=== PATIENT | female | born 1930 | race Caucasian/White ===

== ENCOUNTER 2017-04-15 21:19 | Emergency (ER) | payer MEDICARE, BC ==
[2017-04-15] MEDS ORDERED: DIPHENHYDRAMINE 50 MG/ML VIAL ONE (22:00)
[2017-04-15] MEDS ORDERED: METOCLOPRAMIDE HCL 10 MG/2 ML VIAL ONE (22:00)
[2017-04-15] MEDS ORDERED: hydrALAZINE HCL 20 MG/ML VIAL ONE (22:20)
[2017-04-15] MEDS ORDERED: KETOROLAC TROMETHAMINE 30 MG/ML VIAL ONE (22:20)
[2017-04-15] MEDS ORDERED: DIHYDROERGOTAMINE MESYLATE 1 MG/ML AMP ONE (23:36)
[2017-04-15] MEDS ORDERED: ONDANSETRON HCL 4 MG/2 ML VIAL ONE (23:48)
[2017-04-16] MEDS ORDERED: ONDANSETRON ODT PREPAC 4 MG TAB.RAPDIS PO ONE (00:36)
--- NOTE | 2017-04-16 01:23 | ER NURSING DOCUMENTATION ---
Nurse's Notes [facility] Name:Anu Patterson Age:86 yrs Sex:Female :1930 Arrival Date:04/15/2017 Time:21:19 Bed6 Private MD:Gwen Medrano Diagnosis:Acute Headache;Dehydration Presentation: 04/15 21:21 Acuity: SOFÍA 2 rh 21:42 Presenting complaint: Patient states: headache and nausea since dinner. Transition of lb care: Home. Notified ED Physician of Cayetano Bledsoe notified. 21:42 Method Of Arrival: Walk In lb Triage Assessment: 21:43 General: Appears ill, Behavior is appropriate for age, pleasant. Pain: Complains of lb pain in face Pain does not radiate. Pain currently is 7 out of 10 on a pain scale. GI: Reports nausea. Historical: - Allergies: No known drug Allergies; - Home Meds: 1. Lisinopril Oral 2. amlodipine oral - PMHx: Hypertension; Headaches; - PSHx: None; - Tetanus: < 10 years. - Ebola Screening: : Patient denies exposure to infectious person. Patient denies travel to an Ebola-affected area in the 21 days before illness onset. . - Immunization history: Flu Vaccine < 1 year. - Social history: Smoking status: Patient states was never smoker of tobacco. Patient uses alcohol only on a social basis. Screenin:44 Infectious Disease Risk None. Abuse screen: Denies threats or abuse. Denies injuries lb from another. Nutritional screening: No deficits noted. Assessment: 04/16 01:22 GI: Abdomen is flat, non- distended Bowel sounds present X 4 quads. Abd is soft and non lb tender. Vital Signs: 04/15 21:43 BP 194 / 107; Pulse 84; Resp 20; Temp 98(O); Pulse Ox 94% on R/A; Weight 54.43 kg; lb Height 5 ft. 8 in. (172.72 cm); Pain 7/10; 22:31 BP 135 / 87; Pulse 77; Resp 15; Pulse Ox 95% ; lb 04/16 00:31 BP 137 / 87; Pulse 92; Resp 15; Pulse Ox 91% 2 lpm ; lb 00:31 Pain 3/10; lb 01:21 BP 137 / 87; Pulse 78; Resp 14; Pulse Ox 93% on R/A; Pain 1/10; lb 04/15 21:43 Body Mass Index 18.25 (54.43 kg, 172.72 cm) lb ED Course: 04/15 21:20 Patient arrived in ED. ma1 21:20 Gwen Medrano MD is Private Physician. ma1 21:21 Triage completed. rh 21:33 Filomena Barbosa is Primary Nurse. lb 21:34 Alex Monteiro MD is Attending Physician. 21:44 Valuables Remains with patient Patient has correct armband on for positive lb identification. Bed in low position. Call light in reach. Side rails up X 1. 23:34 Gwen Medrano MD is Referral Physician. Administered Medications: 21:59 Drug: Reglan 5 mg; Route: IVP; Site: left antecubital; lb 23:13 Follow up: Response: Pain is decreased lb 21:59 Drug: Benadryl 12.5 mg; Route: IVP; Site: left antecubital; lb 23:13 Follow up: Response: Pain is decreased lb 22:13 Drug: Toradol 15 mg; Route: IVP; Site: left antecubital; lb 23:13 Follow up: Response: Pain is decreased lb 22:13 Drug: hydrALAZINE 10 mg; Route: IVP; Site: left antecubital; lb 23:13 Follow up: Response: Blood pressure is lowered lb 22:14 Drug: NS 0.9% 1000 ml; Route: IV; Rate: bolus; Site: left antecubital; lb 23:29 Follow up: IV Status: Completed infusion; IV Intake: 1000ml lb 23:28 Drug: Dihydroergotamine 1 mg; Route: IVP; Site: left antecubital; lb 04/16 01:20 Follow up: Response: Pain is decreased lb 04/15 23:37 Drug: Zofran 4 mg; Route: IVP; Infused Over: 2 mins; Site: left antecubital; lb 04/16 01:20 Follow up: Response: Nausea is decreased lb 01:23 Drug: Zofran 1 tablet; Route: PO; lb 01:23 Follow up: Response: Pharmacy closed - take home med pack lb Intake: 04/15 23:29 IV: 1000ml; Total: 1000ml. lb Outcome: 23:34 Discharge ordered by . nilda 04/16 01:21 Discharged to home ambulatory. lb Condition: stable Discharge Assessment: Patient awake, alert and oriented x 3. No cognitive and/or functional deficits noted. Patient verbalized understanding of disposition instructions. Instructed on discharge instructions, follow up and referral plans. IV D/Kelton 01:23 Patient left the ED. lb Signatures: Alex Monteiro MD MD jm Hofsess, Rachel rh Bollock, Lynda lb Addison, Melissa ma1
--- NOTE | 2017-04-16 01:23 | ER PHYSICIAN DOCUMENTATION ---
Physician Documentation [facility] Name:Anu Patterson Age:86 yrs Sex:Female :1930 Arrival Date:04/15/2017 Time:21:19 Bed6 Private MD:Gwen Medrano ED, John Disposition: 04/15/17 23:34 Discharged to Home/Self Care. Impression: Acute Headache, Dehydration. - Condition is Good. - Discharge Instructions: HEADACHE, Unspecified. - Medical Reconciliation form form. - Follow up: Gwen Medrano MD; When: 2 - 3 days; Reason: Continuance of care. - Problem is new. - Symptoms have improved. HPI: 04/15 22:39 This 86 yrs old Female presents to ER via Walk In with complaints of Nausea, jm Headache, General Weakness. 22:39 The patient presents to the emergency department with nausea, without any complaints of jm abdominal pain. 22:39 The patient complains of pain to the top of head and forehead. The patient describes jm the headache as pounding. Onset: The symptoms/episode began/occurred 2 day(s) ago, and became persistent today. Associated signs and symptoms: Pertinent positives: nausea, Pertinent negatives: fever, neck stiffness, vision changes, weakness. Severity of symptoms: At its worst the pain was severe. Headache History: Other just lasting longer. the symptoms are aggravated by nothing. The patient has experienced similar episodes in the past, and the symptoms today are exactly the same, to previous PINEDA's but lasting longer. The patient has not recently seen a physician. Historical: - Allergies: No known drug Allergies; - Home Meds: 1. Lisinopril Oral 2. amlodipine oral - PMHx: Hypertension; Headaches; - PSHx: None; - Tetanus: < 10 years. - Ebola Screening: : Patient denies exposure to infectious person. Patient denies travel to an Ebola-affected area in the 21 days before illness onset. . - Immunization history: Flu Vaccine < 1 year. - Social history: Smoking status: Patient states was never smoker of tobacco. Patient uses alcohol only on a social basis. ROS: 22:42 Constitutional: Negative for fatigue, fever. jm 22:42 Eyes: Negative for blurry vision, visual disturbance. 22:42 Neck: Negative for pain with movement, stiffness. 22:42 Abdomen/GI: Positive for nausea, Negative for vomiting. 22:42 MS/extremity: Negative for paresthesias. 22:42 Neuro: Positive for headache, Negative for dizziness, numbness, tingling, weakness. 22:42 All other systems are negative. Exam: 22:42 Constitutional: The patient appears alert, awake, comfortable. nilda 22:42 Eyes: Periorbital structures: appear normal, Pupils: equal, round, and reactive to light and accomodation, Extraocular movements: intact throughout. 22:42 ENT: Mouth: is normal, Voice: is normal. 22:42 Neck: Thyroid: appears normal, Trachea: is midline with no obvious abnormalities. 22:42 Chest/axilla: Palpation: is normal. 22:42 Cardiovascular: Rate: normal, Rhythm: regular. 22:42 Respiratory: Respirations: normal, Breath sounds: are normal, clear throughout. 22:42 Abdomen/GI: Bowel sounds: normal, Palpation: abdomen is soft and non-tender. 22:42 Musculoskeletal/extremity: Circulation is intact in all extremities. Sensation intact. 22:42 Skin: Appearance: Color: pink, no rash present. 22:42 Neuro: Orientation: is normal, Mentation: is normal, Memory: is normal, Cranial nerves: CN II- XII are normal as tested, Cerebellar function: normal finger to nose testing. 22:42 Psych: Behavior/mood is pleasant, cooperative, Affect is calm. Vital Signs: 21:43 BP 194 / 107; Pulse 84; Resp 20; Temp 98(O); Pulse Ox 94% on R/A; Weight 54.43 kg; lb Height 5 ft. 8 in. (172.72 cm); Pain 7/10; 22:31 BP 135 / 87; Pulse 77; Resp 15; Pulse Ox 95% ; lb 06/ 00:31 BP 137 / 87; Pulse 92; Resp 15; Pulse Ox 91% 2 lpm ; lb 00:31 Pain 3/10; lb 01:21 BP 137 / 87; Pulse 78; Resp 14; Pulse Ox 93% on R/A; Pain 1/10; lb 04/15 21:43 Body Mass Index 18.25 (54.43 kg, 172.72 cm) lb MDM: 04/15 21:33 Patient medically screened. nilda 22:46 Differential diagnosis: migraine, tension headache, vasomotor headache. Neurological jm re-evaluation: normal neurological exam including cranial nerves, orientation, mentation, motor and sensory exam, cerebellar testing, GCS normal, and normal gait. Data reviewed: vital signs, nurses notes, old medical records, and as a result, I will discharge patient. Counseling: I had a detailed discussion with the patient and/or guardian regarding: the historical points, exam findings, and any diagnostic results supporting the discharge/admit diagnosis, the need for outpatient follow up, with the patient's primary care provider, a neurologist. Medication response: The patient's symptoms have improved. 04/15 21:35 Order name: Iv Saline Lock; Complete Time: 21:59 04/15 21:35 Order name: Pulse Ox Continuous; Complete Time: 21:44 Dispensed Medications: 21:59 Drug: Reglan 5 mg; Route: IVP; Site: left antecubital; lb 23:13 Follow up: Response: Pain is decreased lb 21:59 Drug: Benadryl 12.5 mg; Route: IVP; Site: left antecubital; lb 23:13 Follow up: Response: Pain is decreased lb 22:13 Drug: Toradol 15 mg; Route: IVP; Site: left antecubital; lb 23:13 Follow up: Response: Pain is decreased lb 22:13 Drug: hydrALAZINE 10 mg; Route: IVP; Site: left antecubital; lb 23:13 Follow up: Response: Blood pressure is lowered lb 22:14 Drug: NS 0.9% 1000 ml; Route: IV; Rate: bolus; Site: left antecubital; lb 23:29 Follow up: IV Status: Completed infusion; IV Intake: 1000ml lb 23:28 Drug: Dihydroergotamine 1 mg; Route: IVP; Site: left antecubital; lb 04/16 01:20 Follow up: Response: Pain is decreased lb 04/15 23:37 Drug: Zofran 4 mg; Route: IVP; Infused Over: 2 mins; Site: left antecubital; lb 04/16 01:20 Follow up: Response: Nausea is decreased lb 01:23 Drug: Zofran 1 tablet; Route: PO; lb 01:23 Follow up: Response: Pharmacy closed - take home med pack lb Signatures: Alex Monteiro MD MD jm Bollock, Lynda lb
== END 2017-04-16 01:23 | disposition home or self-care (01) ==
LOC: ER 21:19
DX: R51 Headache (principal); E86.0 Dehydration; R11.0 Nausea; R53.1 Weakness; I10 Essential (primary) hypertension; Z79.899 Other long term (current) drug therapy
CPT/HCPCS: 96361; 96374; 96375; 99283; 99284; J0360; J1200; J1885; J2405; J2765